=== PATIENT | female | born 1995 | race Caucasian/White ===

== ENCOUNTER → 2016-12-27 | Outpatient (CLI) | payer BC, OTHER ==
--- NOTE | 2016-12-27 12:10 | DIAGNOSTIC IMAGING REPORT ---
LUMBAR SPINE MIN 4 VIEWS CLINICAL HISTORY: LOWER BACK PAIN COMPARISON STUDY: No previous studies for comparison. FINDINGS: The bony mineralization appears normal. There are 5 lumbar type vertebral bodies. No fractures or subluxations are visualized. No destructive lesions are evident. IMPRESSION: Unremarkable conventional radiographic evaluation of the lumbar spine. Electronically signed by: Jorge Soliman M.D. 12/27/2016 12:09 PM Dictated Date/Time: 12/27/2016 12:08 PM
== END | disposition home or self-care (01) ==
LOC: C.RDSM 11:58
PROVIDERS: ATTEND Family Medicine
DX: M54.5 Low back pain (principal)

== ENCOUNTER → 2017-01-28 | Outpatient (CLI) | payer BC, OTHER | END | disposition home or self-care (01) | LOC: C.RDSM 10:00 | PROVIDERS: ATTEND Internal Medicine | DX: M54.5 Low back pain (principal); M21.70 Unequal limb length (acquired), unspecified site ==

== ENCOUNTER → 2017-04-12 | Outpatient (CLI) | payer BC, OTHER | END | disposition home or self-care (01) | LOC: C.RDSM 14:54 | PROVIDERS: ATTEND Internal Medicine | DX: M54.6 Pain in thoracic spine (principal) ==